=== PATIENT | male | born 1965 | race Caucasian/White ===

== ENCOUNTER 2023-12-19 07:15 | Day surgery (SDC) | payer BC, SELFPAY ==
[2023-12-19] VITALS (9 sets, daily range): BP systolic 104–157; BP diastolic 58–90; BMI 27.9
[2023-12-19] MEDS: NSS 242 ML IV (07:51)
[2023-12-19 10:02] LABS: ACT-LR - POC 226 Seconds (116-155)
[2023-12-19] MEDS: NSS 1000 IV (10:21)
--- NOTE | 2023-12-19 11:13 | ITS.CL.CATH ---
[employer] - Catheterization
Cardiac Catheterization
Procedure Report:
CARDIAC CATHETERIZATION REPORT
Date of Procedure: 12/19/2023
Referring: Cipriano Lewis MD
Indication: Chest pain with risk factors
HEMODYNAMIC DATA
AO: 145/79
LV: 145/14
LEFT VENTRICULOGRAPHY: Normal wall motion with EF 63%
CORONARY ANGIOGRAPHY
Dominance: Right
Left Main: Very mild distal tapering
LAD: 30% proximal LAD stenosis with 20% mid LAD stenosis just distal to the takeoff of the medium sized second diagonal branch. There is a focal 60% mid to distal LAD lesion
Circumflex: There is a proximal 20% OM1 stenosis and otherwise mild luminal irregularities in the circumflex system
RCA: Dominant vessel with 30% proximal stenosis and otherwise mild luminal irregularities
FloWire assessment: At the conclusion of the diagnostic study we evaluated the functional significance of the LAD disease with FloWire assessment. Heparin was used for anticoagulation. A 6 [place] EBU 3.75 guide catheter was used. A [employer] flow
wire was advanced into the distal LAD. iFR measurements were 0.93, 0.93, and 0.93. These are all consistent with nonflow-limiting disease.
Closure Device: None-the procedure was performed via the right radial artery. The Jeffery's test was normal prior to the procedure.
Radiation (mGy): 260
DAP (cm2.Gy): 22.8
Fluoroscopy time: 4.3 minutes
CONCLUSIONS
1: Systemic hypertension
2: Normal left ventricular function with EF 63%
3. Mild to moderate CAD as described
4. The LAD disease is not flow-limiting by iFR criteria
5. The importance of risk factor modification to prevent progression of CAD has been discussed with the patient and his family. We will increase rosuvastatin to 20 mg daily. He will continue aspirin 81 mg daily. I told him that if he is unable
or unwilling to stop smoking his lifespan will be significantly shortened.
Copy to: Cipriano Lewis MD, Jayant Anguiano MD
Reginaldo Walker MD, [facility], [facility]
== END 2023-12-19 13:25 | disposition home or self-care (01) ==
LOC: CATH 07:15
PROVIDERS: ATTENDING PHYSICIAN Internal Medicine Cardiovascular Disease; FAMILY PHYSICIAN Internal Medicine
DX: I25.10 Atherosclerotic heart disease of native coronary artery without angina pectoris (principal); I10 Essential (primary) hypertension; Z79.82 Long term (current) use of aspirin; F17.210 Nicotine dependence, cigarettes, uncomplicated; Z79.899 Other long term (current) drug therapy
CPT/HCPCS: 85347; 93458; 93571; C1769; C1894; Q9967